=== PATIENT | male | born 1980 | race Caucasian/White ===

== ENCOUNTER 2024-04-16 21:03 | Emergency (ER) | payer BC ==
[~2024-04-16] VITALS: Ht 177.8 cm; Wt 97.7 kg
[2024-04-16] MEDS ORDERED: PROZAC40 M1 PO (21:24)
[2024-04-16] MEDS ORDERED: CELEBREX 200MG200 MG PO (21:25)
[2024-04-16] MEDS ORDERED: NEURONTIN300 MG/CAP (21:25)
[2024-04-16] MEDS ORDERED: NS 1,000 ML IV ONE (21:30)
[2024-04-16 21:42] LABS: BASO # 0.03 K/mm3 (0.02-0.10); EOS # 0.28 K/mm3 (0.04-0.40); EOS % 4.4 % (0.0-4.0); HEMATOCRIT 41.1 % (42.0-52.0); HEMOGLOBIN 13.9 g/dL (13.5-18.0); LYMPH# 1.84 K/mm3 (1.50-4.00); MEAN CELL VOLUME 86 fl (78-100); MEAN CORPUSCULAR HEMOGLOBIN 29 pg (27-31); MEAN CORPUSCULAR HGB CONC 34 g/dL (33-37); MEAN PLATELET VOLUME 9.1 fl (7.4-10.4); MONO # 0.48 K/mm3 (0.20-0.80); NEU # 3.73 K/mm3 (1.40-6.50); PLATELET COUNT 215 K/mm3 (130-400); RED CELL DISTRIBUTION WIDTH 12.4 % (11.5-14.5); WHITE BLOOD COUNT 6.4 K/mm3 (4.8-10.8)
[2024-04-16] MEDS ORDERED: Ondansetron 4 MG/2 ML VIAL IV ONE (21:45)
[2024-04-16] MEDS ORDERED: Morphine 4 MG/ML VIAL IV ONE (21:45)
[2024-04-16 21:50] LABS: ALBUMIN 4.1 g/dL (3.5-5.0)
[2024-04-16 21:51] LABS: CALCIUM 9.5 mg/dL (8.3-10.5)
[2024-04-16 21:53] LABS: TOTAL PROTEIN 6.9 g/dL (6.4-8.3)
[2024-04-16 21:54] LABS: TOTAL BILIRUBIN 0.4 mg/dL (0.2-1.2)
[2024-04-16] MEDS ORDERED: Iohexol 300 - 100 ML VIAL IV ONE (22:29)
[2024-04-16 22:43] LABS: URINE WBC 0 /hpf (0-3)
[2024-04-16 22:51] LABS: PH-URINE 6.5 (5.0 - 8.0); URINE APPEARANCE CLEAR (CLEAR); URINE BILIRUBIN NEGATIVE (NEGATIVE); URINE BLOOD NEGATIVE (NEGATIVE); URINE COLOR YELLOW (YELLOW); URINE GLUCOSE NEGATIVE (NEGATIVE); URINE KETONE NEGATIVE (NEGATIVE); URINE LEUKOCYTE ESTERASE NEGATIVE (NEGATIVE); URINE NITRATE NEGATIVE (NEGATIVE); URINE PROTEIN(semi-quant) NEGATIVE (NEGATIVE)
[2024-04-16] MEDS ORDERED: ONDANSETRON HYDR4 MG PO (23:13)
[2024-04-16] MEDS ORDERED: PROTONIX TR40 M1 PO (23:13)
[2024-04-16] MEDS ORDERED: NORCO 325 MG-51 TA1 PO (23:14)
[2024-04-16] MEDS ORDERED: Home HYDROcodone/Acetaminophen 5/325 MG #4 TABS/PACK PO ONE (23:15)
[2024-04-16 23:40] VITALS: BP 134/66
== END 2024-04-16 23:40 | disposition home or self-care (01) ==
LOC: ED 21:03
PROVIDERS: Family Medicine
DX: K92.1 Melena (principal); T39.395A Adverse effect of other nonsteroidal anti-inflammatory drugs [NSAID], initial encounter; R10.31 Right lower quadrant pain; Z79.1 Long term (current) use of non-steroidal anti-inflammatories (NSAID); Z87.891 Personal history of nicotine dependence
CPT/HCPCS: J2270; J2405; J7030; Q9967